=== PATIENT | female | born 1970 | race Caucasian/White ===

== ENCOUNTER 2023-04-15 11:21 | Emergency (ER) | payer OTHER, SELFPAY ==
[2023-04-15 11:33] VITALS: BP 111/72; PULSE 82; RESP 22; TEMP 36.5; O2SAT 97; BMI 51.9
--- NOTE | 2023-04-15 11:44 | ED_ITS ---
HPI - SOB/Dyspnea General Chief Complaint: Shortness of Breath/Dyspnea Stated Complaint: shortness of breath Time Seen by Provider: 04/15/23 11:40 Source: patient Mode of arrival: walk-in History of Present Illness HPI Narrative: History of COPD presenting to us with a shortness of breath that has been getting worse over the last 2 days she also have a cough nonproductive, the patient have no fever or chills but she has been having shortness of breath on exertion she did not use her inhaler except this morning The patient have no chest pain and no leg swelling and no exposure to anybody with similar symptoms Related Data Previous Rx's Medication Instructions Recorded azithromycin 500 mg tablet See Rx Instructions PO .COMPLEX #9 04/15/23 (Zithromax TRI-TRUONG) tabs fluticasone 250 mcg-salmeterol 50 1 inh inhalation BID #60 ea 04/15/23 mcg/dose blistr powdr for inhalation (Advair Diskus) prednisone 50 mg tablet 50 mg PO DAILY 3 days #3 tabs 04/15/23 Allergies Allergy/AdvReac Type Severity Reaction Status Date / Time No Known Drug Allergies Allergy Verified 04/15/23 11:33 Review of Systems ROS Status of ROS 10 or more systems reviewed and unremarkable except as noted in history and below PFSH PFS Social History Smoking status: Current every day smoker Exam Narrative Exam Narrative: Nurses notes and vital signs reviewed and patient is not hypoxic. General: Well-appearing and in no apparent distress. Skin: Warm, dry, no pallor noted. No rash. Head: Normocephalic, atraumatic. Neck: Supple, non-tender. Eye: Pupils are equal, round and EOMI. No scleral icterus. Ears, Nose, Mouth, and Throat: TM are clear, no nasal mucosal hypertrophy. Oral mucosa is moist, no posterior oropharynx erythema, uvula is mid-line Cardiovascular: Regular Rate and Rhythm without murmur, gallop or rub. Respiratory: No accessory muscle use or respiratory distress. Lungs bilateral expiratory mild wheezes that are distant as well as decreased air entry bilaterally Chest Wall: no tenderness Back: No midline thoracic or lumbar vertebral tenderness. No CVA tenderness Musculoskeletal: normal ROM, no calf or popliteal tenderness, no lower extremity edema/swelling GI: Abdomen is soft, non-distended. Normal bowel sounds. No masses appreciated. No tenderness to palpation. No rebound, guarding, or rigidity noted. Neurological: A&O x4. No cranial nerve dysfunction observed. No truncal ataxia. Moves all extremities. Sensation intact. Psychiatric: Cooperative and interactive. Normal mood and affect. Constitutional Vital Signs, click to edit/add: Last Vital Signs Temp 97.7 F 04/15/23 11:33 Pulse 82 04/15/23 11:33 Resp 22 04/15/23 11:33 BP 111/72 04/15/23 11:33 Pulse Ox 97 04/15/23 11:33 Course Vital Signs Vital signs: Vital Signs Temperature 97.7 F 04/15/23 11:33 Pulse Rate 82 04/15/23 11:33 Respiratory Rate 22 04/15/23 11:33 Blood Pressure 111/72 04/15/23 11:33 Pulse Oximetry 97 04/15/23 11:33 Temperature 97.7 F 04/15/23 11:33 Pulse Rate 82 04/15/23 11:33 Respiratory Rate 22 04/15/23 11:33 Blood Pressure 111/72 04/15/23 11:33 Pulse Oximetry 97 04/15/23 11:33 MDM - SOB/Dyspnea MDM Narrative Medical decision making narrative: The patient EKG in the ER showing sinus rhythm with a heart rate of [address] elevation or depression Chest x-ray as well as CBC and chemistry showing no acute significant pathology and the patient was treated in the ER with Solu-Medrol as well as breathing treatment The patient was feeling better after the treatment she was discharged home with the Advair as well as the prednisone Z-Truong and to continue using her albuterol The patient is to follow up with primary care physician in next 2-3 days or to return to the emergency department should any of the signs or symptoms worsen or new symptoms develop. The patient agrees with the following Diagnosis and Treatment plan and the patient will be discharged home. Lab Data Labs: Lab Results 04/15/23 Range/Units 11:55 WBC 8.5 (4.0-11.0) 10^3/uL RBC 4.66 (4.20-5.40) 10^6/uL Hgb 13.5 (12.0-16.0) g/dL Hct 42.1 (36.0-48.0) % MCV 90.3 (81.0-99.0) fL MCH 29.0 (26.7-34.0) pg MCHC 32.1 (29.9-35.2) g/dL RDW 13.5 (11.0-15.0) % Plt Count 222 (150-450) 10^3/uL MPV 8.7 L (9.5-13.5) fL Neut % (Auto) 55.6 (43.0-75.0) % Lymph % (Auto) 35.7 (20.5-60.0) % [place] % (Auto) 6.3 (1.7-12.0) % Eos % (Auto) 1.3 (0.9-7.0) % Baso % (Auto) 0.6 (0.2-2.0) % Neut # (Auto) 4.7 (1.4-6.5) 10^3/uL Lymph # (Auto) 3.0 (1.2-3.8) 10^3/uL [place] # (Auto) 0.5 (0.3-0.8) 10^3/uL Eos # (Auto) 0.1 (0.0-0.7) 10^3/uL Baso # (Auto) 0.1 (0.0-0.1) 10^3/uL Abs Immat Gran (auto) 0.04 H (0.00-0.03) 10^3/uL Imm/Tot Granulo (auto) 0.5 (0.0-0.5) % PT 9.7 (9.0-11.6) sec INR <0.93 Sodium 141 (136-145) mmol/L Potassium 4.4 (3.5-5.1) mmol/L Chloride 107 (98-107) mmol/L Carbon Dioxide 29.7 (21.0-32.0) mmol/L Anion Gap 8.7 BUN 22.0 H (7.0-18.0) mg/dL Creatinine 1.13 H (0.55-1.02) mg/dL Est GFR ( Amer) >60 (>=60) Est GFR (Non-Af Amer) 50 L (>=60) BUN/Creatinine Ratio 19.5 Glucose 96 (74-106) mg/dL Calcium 9.1 (8.5-10.1) mg/dL Total Bilirubin 0.2 (0.2-1.0) mg/dL AST 7 L (15-37) U/L ALT 16 (14-59) U/L Alkaline Phosphatase 98 (46-116) U/L Troponin I High Sens 8.8 (4.0-51.3) pg/mL Total Protein 7.3 (6.4-8.2) g/dL Albumin 4.1 (3.4-5.0) g/dL Globulin 3.2 g/dL Albumin/Globulin Ratio 1.3 Discharge Plan Discharge Chief Complaint: Shortness of Breath/Dyspnea Clinical Impression: COPD exacerbation Patient Disposition: Home, Self-Care Time of Disposition Decision: 12:48 Condition: Good Prescriptions / Home Meds: New azithromycin [Zithromax TRI-TRUONG] 500 mg tablet See Rx Instructions .ROUTE .COMPLEX Qty: 9 0RF Rx Instructions: For 250 mg dose pack: take 500 mg today (day 1), then 250 mg for 4 days (days 2-5) fluticasone propion-salmeterol [Advair Diskus] 250-50 mcg/dose blister with device 1 inh inhalation BID Qty: 60 0RF prednisone 50 mg tablet 50 mg PO DAILY 3 Days Qty: 3 0RF Instructions: COPD (Chronic Obstructive Pulmonary Disease) (ED) Stand Alone Forms: Portal Instructions Referrals: Loida Huggins [Primary Care Provider] - 1 week
--- NOTE | 2023-04-15 11:44 | ECG_ITS ---
[facility] Test Date: 2023-04-15 Pat Name: VIN EDUARDO Department: Room: - Gender: Female [employer]: : 1970 Requested By: MARIAMA GARCIA Order Number: [id number] Reading MD: SAM REYES Measurements Intervals [place] Rate: 80 P: 53 [place]: 156 QRS: 51 QRSD: 88 T: 45 QT: 328 QTc: 364 Interpretive Statements 1100 Sinus rhythm 4068 Nonspecific Twave abnormality 9130 borderline ECG No previous ECG available for comparison Electronically Signed On 04-16-2023 7:23:10 EDT by SAM REYES
--- NOTE | 2023-04-15 11:44 | XR_ITS ---
The [address] [address] Patient Name: VIN EDUARDO MRN: [id number] date: 1970 Sex: F Assigned Patient Location: ER Current Patient Location: ER Accession/Order Number: [id number] Exam Date: 04/15/2023 12:05 Report Date: 04/15/2023 12:19 At the request of: EDEL JOY Procedure: XR chest 1V EXAM: XR chest 1V at 1133 hours HISTORY: sob for 2 days. COMPARISON: 09/13/2022 TECHNIQUE: AP upright portable chest x-ray FINDINGS: The heart is not enlarged and the vasculature is not distended. No acute infiltrate, effusion or pneumothorax is readily identified. The study is bit limited secondary to the patient's body habitus and technique. The osseous structures are grossly intact. XR/XR chest 1V IMPRESSION: No acute infiltrate or evidence of cardiac decompensation. Given the differences in technique, the overall appearance of the chest is essentially unchanged. Electronically authenticated by: VONDA NETTLES Date: 04/15/2023 12:19
[2023-04-15] MEDS: METHYLPREDNISOLONE SOD SUCC PF 125 MG/2 ML VIAL IVP (12:00)
[2023-04-15] MEDS: IPRATROPIUM/ALBUTEROL SULFATE 3 ML AMPUL.NEB IH (12:08)
[2023-04-15 12:14] LABS: Basophils Absolute Auto 0.1 10^3/uL (0.0-0.1); Basophils Percent Auto 0.6 % (0.2-2.0); Eosinophils Absolute Auto 0.1 10^3/uL (0.0-0.7); Eosinophils Percent Auto 1.3 % (0.9-7.0); Hematocrit 42.1 % (36.0-48.0); Hemoglobin 13.5 g/dL (12.0-16.0); Immature Granulocytes Abs Auto 0.04 10^3/uL (0.00-0.03); Immature Granulocytes Pct Auto 0.5 % (0.0-0.5); Lymphocytes Percent Auto 35.7 % (20.5-60.0); Mean Corpuscular HGB Conc 32.1 g/dL (29.9-35.2); Mean Corpuscular Volume 90.3 fL (81.0-99.0); Mean Platelet Volume 8.7 fL (9.5-13.5); Monocytes Absolute Auto 0.5 10^3/uL (0.3-0.8); Monocytes Percent Auto 6.3 % (1.7-12.0); Neutrophils Absolute Auto 4.7 10^3/uL (1.4-6.5); Neutrophils Percent Auto 55.6 % (43.0-75.0); Platelet Count 222 10^3/uL (150-450); Red Blood Count 4.66 10^6/uL (4.20-5.40); Red Cell Distribution Width 13.5 % (11.0-15.0); White Blood Count 8.5 10^3/uL (4.0-11.0)
[2023-04-15 12:26] LABS: Prothrombin Time 9.7 sec (9.0-11.6)
[2023-04-15 12:28] LABS: INR <0.93
[2023-04-15 12:32] LABS: Alanine Aminotransferase 16 U/L (14-59); Albumin Globulin Ratio 1.3; Albumin Level 4.1 g/dL (3.4-5.0); Alkaline Phosphatase 98 U/L (46-116); Anion Gap 8.7; Aspartate Amino Transferase 7 U/L (15-37); BUN Creatinine Ratio 19.5; Bilirubin Total 0.2 mg/dL (0.2-1.0); Calcium 9.1 mg/dL (8.5-10.1); Carbon Dioxide 29.7 mmol/L (21.0-32.0); Chloride 107 mmol/L (98-107); Estimated GFR (African America >60 (>=60); Estimated GFR (Non-African Ame 50 (>=60); Globulin 3.2 g/dL; Glucose 96 mg/dL (74-106); Potassium 4.4 mmol/L (3.5-5.1); Sodium 141 mmol/L (136-145); Total Protein 7.3 g/dL (6.4-8.2)
[2023-04-15 12:34] LABS: Troponin I High Sensitivity 8.8 pg/mL (4.0-51.3)
[2023-04-15 13:42] VITALS: O2SAT 98
== END 2023-04-15 13:43 | disposition home or self-care (01) ==
PROVIDERS: Emergency Provider Emergency Medicine; PCP Nurse Practitioner
DX: J44.1 Chronic obstructive pulmonary disease with (acute) exacerbation (principal); F17.210 Nicotine dependence, cigarettes, uncomplicated
CPT/HCPCS: 36415; 71045; 80053; 84484; 85025; 85610; 93005; 94640; 99285; J2930

== ENCOUNTER 2025-02-05 07:43 | Outpatient (OUT) | payer BC, SELFPAY ==
--- OUTSIDE RECORDS SUMMARY | 2025-01-25 10:30 | XMS_ITS | Encounter Summary ---
Author Organization [facility] Address [address] [place] [address] Care Team Providers Care Licensed Physical Therapist Name Role Phone Loida Huggins NP Unavailable [phone] Chandler Tee MD Primary Care Provider [phone] Reason for Visit * Reason Comments Diabetes Encounter Details Date Type Department Care Team ([facility] st Contact Info) Description 01/25/2025 10:30 AM EDT Office Visit [facility] [address] [place] [address] Loida Huggins, LISBET [address] [place] [address] Bilateral primary osteoarthritis of knee (Primary Dx); Obstructive sleep apnea syndrome; COPD with asthma (HCC); Pulmonary hypertension (HCC); Gastroesophageal reflux disease, unspecified whether esophagitis present; Lower extremity edema; Morbid (severe) obesity due to excess calories ([facility]-HCC); Other specified hypothyroidism ; Acquired hypothyroidism ; Prediabetes; Anxiety; Mixed anxiety and depressive disorder; Tobacco user; Encounter for screening mammogram for malignant neoplasm of breast; Anxiety disorder, unspecified; Pulmonary hypertension, unspecified (HCC); Insomnia, unspecified Social History Tobacco Use Types Packs/Day Years Used Date Smoking Tobacco: Every Day Cigarettes Smokeless Tobacco: Never Alcohol Use Standard Drinks/Week Comments Not Currently 0 (1 standard drink = 0.6 oz pur e alcohol) caffine: coffee 2 pots daily Comments Unknown Sex and Gender Information Value Date Recorded Sex Assigned at Not on file Legal Sex Female 6:42 PM EDT Gender Identity Not on file Sexual Orientation Not on file documented as of this encounter Last Filed Vital Signs Vital Sign Reading Time Taken Comments Blood Pressure 140/90 01/25/2025 10:30 AM EDT Pulse 72 01/25/2025 10:30 AM EDT Temperature 36.6 C (97.8 F) 01/25/2025 10:30 AM EDT Respiratory Rate 20 01/25/2025 10:30 AM EDT Oxygen Saturation 97% 01/25/2025 10:30 AM EDT Inhaled Oxygen Concentration - - Weight 152 kg (335 lb 3.2 oz) 01/25/2025 10:30 A M EDT Height - - Body Mass Index 58.45 03/20/2024 2:51 PM EDT documented in this encounter Patient Instructions * Patient Instructions* Loida Huggins NP - 01/25/2025 10:30 AM EDT Get fasting labs Contact insurance: obesity drugs: Wegovy (semiglutide), Zepbound, and Saxenda. You will need to call them, state we are using for Obesity, and are any of them covered and if yes, what is your cost totake them documented in this encounter Progress Notes * Loida Huggins NP - 01/25/2025 11:07 AM EDTAssociated Problem(s): Bilateral primary osteoarthritis of knee Would prefer to use ibuprofen 800mg * Loida Huggins NP - 01/25/2025 11:05 AM EDTAssociated Problem(s): Encounter for screening mammogram for malignant neoplasm of breast Pt refused * Loida Huggins NP - 01/25/2025 11:03 AM EDTAssociated Problem(s): Insomnia, unspecified Continue with TCA * CHARY SARABIA - 01/25/2025 10:30 AM EDT Left shoulder blade pain- painful in the last couple weeks pt is taking IBU otc however does not help with pt. Pt states she is able to perform ROM it just hurts Pain can range between 5-6 on the pain scale when it does hurt * Loida Huggins NP - 01/25/2025 10:30 AM EDT Images from the original note were not included. Kerline Segal is a 54 y.o. female presents with chief complaint of Diabetes HPI: Left shoulder /scapular pain for a few weeks, getting better, full ROM no pain with this, trialed many OTC things and muscle relaxer Breathing: +cough, dyspnea, no wheeze, worse during humidity, DEANNA: wearing PAP , machine is indicating motor is dying, needs new machine BP; doing well on also takes water pill for swelling in legs Paxil: no SI/HI/hallucinations, working well no changes SUBJECTIVE: MEDICATIONS: Current Outpatient Medications Medication Instructions amitriptyline (ELAVIL) 25 mg, Oral, Nightly Vuuanqqtkqx-Oggnnolbu-Zdrsot (Trelegy Ellipta) 100-62.5-25 MCG/ACT aerosol powder 1 puff, Daily furosemide (LASIX) 40 mg, Oral, Daily ibuprofen 800 mg, Oral, 3 times daily PRN, Take with food levothyroxine (SYNTHROID, LEVOXYL) 88 mcg, Oral, Daily before breakfast PARoxetine (PAXIL) 40 mg, Oral, Daily ALLERGIES: No Known Allergies REVIEW OF SYMPTOMS: Review of Systems Constitutional: Negative for appetite change, chills and fever. HENT: Negative for congestion, ear pain and sore throat. Eyes: Negative for pain, discharge, redness and visual disturbance. Respiratory: Positive for cough, shortness of breath and wheezing. Cardiovascular: Negative for palpitations and leg swelling. Gastrointestinal: Negative for abdominal pain, blood in stool, constipation, diarrhea, nausea and vomiting. Genitourinary: Negative for difficulty urinating, dysuria and frequency. Musculoskeletal: Positive for arthralgias. Negative for back pain, joint swelling and myalgias. Skin: Negative for rash and wound. Neurological: Negative for syncope. Psychiatric/Behavioral: Negative for behavioral problems, self-injury and suicidal ideas. Hematological: Does not bruise/bleed easily. Allergic/Immunologic: Negative for environmental allergies and food allergies. PAST MEDICAL HISTORY History reviewed. No pertinent past medical history. History reviewed. No pertinent surgical history. family history is not on file. OBJECTIVE: Visit Vitals BP 140/90 (BP Location: Left arm, Patient Position: Sitting, BP Cuff Size: Adult long) Pulse 72 Temp 97.8 ??F (Temporal) Resp 20 Wt 335 lb 3.2 oz SpO2 97% BMI 58.45 kg/m?? Smoking Status Every Day BSA 2.61 m?? Physical Exam Vitals and nursing note reviewed. Constitutional: General: She is not in acute distress. Appearance: Normal appearance. She is obese. She is not ill-appearing. HENT: Head: Normocephalic and atraumatic. Right Ear: Tympanic membrane, ear canal and external ear normal. Left Ear: Tympanic membrane, ear canal and external ear normal. Nose: Nose normal. No congestion or rhinorrhea. Mouth/Throat: Mouth: Mucous membranes are moist. Pharynx: No oropharyngeal exudate or posterior oropharyngeal erythema. Eyes: Extraocular Movements: Extraocular movements intact. Conjunctiva/sclera: Conjunctivae normal. Neck: Vascular: No carotid bruit. Cardiovascular: Rate and Rhythm: Normal rate and regular rhythm. Pulses: Normal pulses. Heart sounds: Normal heart sounds. No murmur heard. Pulmonary: Effort: Pulmonary effort is normal. Comments: diminished Abdominal: General: Bowel sounds are normal. There is no distension. Palpations: Abdomen is soft. There is no mass. Tenderness: There is no abdominal tenderness. Musculoskeletal: General: Normal range of motion. Cervical back: Normal range of motion and neck supple. Right lower leg: No edema. Left lower leg: No edema. Comments: Mild tenderness between left scapula and T spine area, no rash No mid print line feeder, left shoulder full ROM Lymphadenopathy: Cervical: No cervical adenopathy. Skin: General: Skin is warm and dry. Capillary Refill: Capillary refill takes 2 to 3 seconds. Findings: No rash. Neurological: General: No focal deficit present. Mental Status: She is alert and oriented to person, place, and time. Psychiatric: Mood and Affect: Mood normal. Behavior: Behavior normal. Thought Content: Thought content normal. Judgment: Judgment normal. ASSESSMENT AND PLAN: Follow up in about 3 months (around 04/27/2025) for Recheck. Problem List Items Addressed This Visit Insomnia, unspecified Continue with TCA Relevant Medications amitriptyline (Elavil) 25 MG tablet GERD (gastroesophageal reflux disease) Recommendations: freq small meals, nothing to eat or drink at least 2 hours prior to bed, limit caffeine, alcohol, as well as spicy foods Meds to limit or avoid if possible: NSAIDS Elevate HOB if possible Current med:nothing Relevant Orders CBC and differential Comprehensive metabolic panel RESOLVED: Anxiety Current med: paxil Bilateral primary osteoarthritis of knee - Primary Would prefer to use ibuprofen 800mg Relevant Medications ibuprofen 800 MG tablet Tobacco user The patient has been advised of the risks of continued smoking: stroke, [place], all forms of cancer, lung disease, and . Options for quitting smoking include: cold turkey, hypnosis, acupuncture, nicotine replacement meds(gum, lozenges, and patches), Buproprion, and Varenicline. At this time pt is encouraged to evaluate their goals for wanting to quit smoking, and reach out toprovider when ready to start this process Relevant Orders Urinalysis with reflex microscopic (clean catch) Lower extremity edema Current meds: lasix Check labs yearly and prn dose change or changes in sxs Relevant Orders Comprehensive metabolic panel RESOLVED: Other specified hypothyroidism Relevant Medications levothyroxine (Synthroid, Levoxyl) 88 MCG tablet Prediabetes No current meds Recommend weight loss, physical activity as chronic conditions allow (difficult with breathing and bilat OA knees) A1c: 6.3% 01/25/25 Relevant Orders Comprehensive metabolic panel POCT glycosylated hemoglobin (Hb A1C) docked device (Completed) Pulmonary hypertension (HCC) Noted on past imaging Sleep apnea You have a diagnosis of obstructive sleep apnea. It is recommended that you wear your PAP device any time while in bed sleeping. Not using the PAP device can increase your risk of elevated/uncontrolled high blood pressure, atrial fibrillation, heart attack, stroke, or sudden . Compliance with PAP: yes How many hours of use per night:6 Do you feel more refreshed in the morning: yes Company that supplies your machine and tubing/filters etc: [facility] Doctor that manages your DEANNA: PCP Gave her phone number for [facility] Sleep lab for pt to call them to see what to do about pap and motor on machine Relevant Orders CBC and differential Morbid (severe) obesity due to excess calories (CMS-HCC) Discussed with patient their BMI (actual, verses recommended). We have also discussed lifestyle modifications: attempts to perform physical activity as chronic conditions allow, also to monitor dietary intake: increasing protein/fruits/veggies and lowering carb intake (unless contraindicated). Limit sodas, juices, and sugary drinks. Relevant Orders Lipid panel COPD with asthma (HCC) Current meds: trelegy and albuterol Relevant Orders CBC and differential Acquired hypothyroidism On thyroid meds Check labs yearly and prn dose change, or changes in sxs Relevant Orders TSH T4, free Mixed anxiety and depressive disorder Current medication: paxil, elavil Encounter for screening mammogram for malignant neoplasm of breast Pt refused Other Visit Diagnoses Anxiety disorder, unspecified Relevant Medications PARoxetine (Paxil) 40 MG tablet Pulmonary hypertension, unspecified (HCC) Relevant Medications furosemide (Lasix) 40 MG tablet * Loida Huggins NP - 01/25/2025 6:27 AM EDTAssociated Problem(s): Tobacco user The patient has been advised of the risks of continued smoking: stroke, [place], all forms of cancer, lung disease, and . Options for quitting smoking include: cold turkey, hypnosis, acupuncture, nicotine replacement meds(gum, lozenges, and patches), Buproprion, and Varenicline. At this time pt is encouraged to evaluate their goals for wanting to quit smoking, and reach out toprovider when ready to start this process * oLida Huggins NP - 01/25/2025 6:27 AM EDTAssociated Problem(s): Mixed anxiety and depressive disorder Current medication: paxil, elavil * Loida Huggins NP - 01/25/2025 6:26 AM EDTAssociated Problem(s): Anxiety (Resolved 01/25/2025) Current med: paxil * Loida Huggins NP - 01/25/2025 6:26 AM EDTAssociated Problem(s): Prediabetes No current meds Recommend weight loss, physical activity as chronic conditions allow (difficult with breathing and bilat OA knees) A1c: 6.3% 01/25/25 * Loida Huggins NP - 01/25/2025 6:25 AM EDTAssociated Problem(s): Acquired hypothyroidism On thyroid meds Check labs yearly and prn dose change, or changes in sxs * Loida Huggins NP - 01/25/2025 6:24 AM EDTAssociated Problem(s): Morbid (severe) obesity due to excess calories ([facility]-HCC) Discussed with patient their BMI (actual, verses recommended). We have also discussed lifestyle modifications: attempts to perform physical activity as chronic conditions allow, also to monitor dietary intake: increasing protein/fruits/veggies and lowering carb intake (unless contraindicated). Limit sodas, juices, and sugary drinks. * Loida Huggins NP - 01/25/2025 6:24 AM EDTAssociated Problem(s): Lower extremity edema Current meds: lasix Check labs yearly and prn dose change or changes in sxs * Loida Huggins NP - 01/25/2025 6:23 AM EDTAssociated Problem(s): GERD (gastroesophageal reflux disease) Recommendations: freq small meals, nothing to eat or drink at least 2 hours prior to bed, limit caffeine, alcohol, as well as spicy foods Meds to limit or avoid if possible: NSAIDS Elevate HOB if possible Current med:nothing * Loida Huggins NP - 01/25/2025 6:23 AM EDTAssociated Problem(s): Pulmonary hypertension (HCC) Noted on past imaging * Loida Huggins NP - 01/25/2025 6:23 AM EDTAssociated Problem(s): COPD with asthma (HCC) Current meds: trelegy and albuterol * Loida Huggins NP - 01/25/2025 6:22 AM EDTAssociated Problem(s): Sleep apnea You have a diagnosis of obstructive sleep apnea. It is recommended that you wear your PAP device any time while in bed sleeping. Not using the PAP device can increase your risk of elevated/uncontrolled high blood pressure, atrial fibrillation, heart attack, stroke, or sudden . Compliance with PAP: yes How many hours of use per night:6 Do you feel more refreshed in the morning: yes Company that supplies your machine and tubing/filters etc: [facility] Doctor that manages your DEANNA: PCP Gave her phone number for [facility] Sleep lab for pt to call them to see what to do about pap and motor on machine documented in this encounter Plan of Treatment Upcoming Encounters Date Type Department Care Team (Late st Contact Info) Description 05/03/2025 10:30 AM EDT Office Visit [facility] [address] [place] [address] Loida Huggins NP [address] [place] [address] Scheduled Orders Name Type Priority Associated Diagnoses Orde r Schedule CBC and differential Lab Routine Obstructive sleep apnea syndrome COPD with asthma (HCC) Gastroesophageal reflux disease, unspecified whether esophagitis present Expected: 01/25/2025 (Approximate), Expires: 01/25/2026 Comprehensive metabolic panel Lab Routine Gastroesophageal reflux disease, unspecified whether esophagitis present Lower extremity edema Prediabetes Expected: 01/25/2025 (Approximate), Expires: 01/25/2026 Lipid panel Lab Routine Morbid (severe) obesity due to excess calories (CMS-HCC) Expected: 01/25/2025 (Approximate), Expires: 01/25/2026 Urinalysis with reflex microscopic (clean catch) Lab Routine Tobacco user Expected: 01/25/2025 (Approximate), Expires: 01/25/2026 TSH Lab Routine Acquired hypothyroidism Expected: 01/25/2025 (Approximate), Expires: 01/25/2026 T4, free Lab Routine Acquired hypothyroidism Expected: 01/25/2025 (Approximate), Expires: 01/25/2026 documented as of this encounter Procedures Procedure Name Priority Date/Time Associated Diagnosis Comments POCT GLYCOSYLATED HEMOGLOBIN (HGB A1C) Routine 01/25/2025 10:46 AM EDT Prediabetes documented in this encounter Results * (ABNORMAL) POCT glycosylated hemoglobin (Hb A1C) docked device (01/25/2025 10:46 AM EDT) Hemoglobin A1C 6.3 Blood Venous blood specimen / Unknown 01/25/2025 10:46 AM EDT Loida Huggins NP POINT OF CARE TEST ENTER/EDIT O RDERABLES Final Result documented in this encounter Visit Diagnoses Diagnosis Bilateral primary osteoarthritis of knee- Primary Obstructive sleep apnea syndrome Obstructive sleep apnea (adult) (pediatric) COPD with asthma (HCC) Pulmonary hypertension (HCC) Other chronic pulmonary heart diseases Gastroesophageal reflux disease, unspecified whether esophagitis present Lower extremity edema Edema Morbid (severe) obesity due to excess calories ([facility]-HCC) Other specified hypothyroidism Acquired hypothyroidism Unspecified hypothyroidism Prediabetes Other abnormal glucose Anxiety Anxiety state, unspecified Mixed anxiety and depressive disorder Dysthymic disorder Tobacco user Tobacco use disorder Encounter for screening mammogram for malignant neoplasm of breast Anxiety disorder, unspecified Pulmonary hypertension, unspecified (HCC) Insomnia, unspecified documented in this encounter Care Teams Licensed Physical Therapist Relationship Specialty Start Date End Date Chandler Tee MD [address] [place] [address] PCP - General Family Medicine 02/24/24 Loida Huggins NP [address] [place] [address] Referring Physician Nurse Practitioner 03/02/23 documented as of this encounter
--- OUTSIDE RECORDS SUMMARY | 2025-02-05 07:48 | XMS_ITS | Encounter Summary ---
Author Organization [facility] Address [address] [place] [address] Phone Care Team Providers Care Flooring Machine Feeder Name Role Phone Loida Huggins Primary Care Provider Encounter Details Date Type Department Care Team (Late st Contact Info) Description 01/25/2022 Orders Only [facility] [address] [place] [address] Conversion, Onbase Social History Tobacco Use Types Packs/Day Years Used Date Smoking Tobacco: Never Assessed Comments Unknown Sex and Gender Information Value Date Recorded Sex Assigned at Not on file Legal Sex Female 1:44 AM EST Gender Identity Not on file Sexual Orientation Not on file documented as of this encounter Plan of Treatment Scheduled Orders Name Type Priority Associated Diagnoses Orde r Schedule OUTSIDE LAB SCAN Lab Ordered: 01/25/2022 documented as of this encounter Visit Diagnoses Not on filedocumented in this encounter Care Teams Flooring Machine Feeder Relationship Specialty Start Date End Date Loida Huggins APRN-CNP [address] [place] [id number] PCP - General 08/16/16 documented as of this encounter
--- OUTSIDE RECORDS SUMMARY | 2025-02-05 07:48 | XMS_ITS | Referral Summary ---
Author Organization [facility] Address [address] [place] [address] Care Team Providers Care Metrology Manager Name Role Phone Unavailable Primary Care Provider Unavailabl e Social History Tobacco Use Types Packs/Day Years Used Date Smoking Tobacco: Never Assessed [place] Safety & Environment Answer Date Rec orded Fear of Current or Ex-Partner Not on file Emotionally Abused Not on file 10/07/2023 Physically Abused Not on file 10/07/2023 Sexually Abused Not on file 10/07/2023 Physically or Sexually Abused Not on file Comments Unknown Sex and Gender Information Value Date Recorded Sex Assigned at Not on file Legal Sex Female 9:31 PM EDT Gender Identity Not on file Sexual Orientation Not on file Plan of Treatment Not on file
--- OUTSIDE RECORDS SUMMARY | 2025-02-05 07:48 | XMS_ITS | Clinical Summary ---
Author Organization [facility] Address [address] [place] [address] Care Team Providers Care Jumbo Operator Name Role Phone Unavailable Primary Care Provider [...]
--- OUTSIDE RECORDS SUMMARY | 2025-02-05 07:48 | XMS_ITS | Clinical Summary ---
Author Organization [facility] Address [id number] [address] [place] [address] Care Team Providers Care Change House Attendant Name Role Phone Loida Huggins APRN-[facility] Primary Care Provider Allergies No known active allergies Medications levothyroxine (SYNTHROID, LEVOTHROID) 125 MCG tablet Take 150 mcg by mouth daily. Active omeprazole (PriLOSEC) 20 mg capsule Take 20 mg by mouth daily. Active therapeutic multivitamin (THERAGRAN) tablet Take 1 tablet by mouth daily. Active potassium chloride (K-DUR,KLOR-CON) 20 MEQ CR tablet Take 20 mEq by mouth daily. Active furosemide (LASIX) 40 mg tablet Take 40 mg by mouth daily. Active PARoxetine (PAXIL) 20 mg tablet Take 20 mg by mouth every morning. Active etodolac (LODINE) 300 mg capsule Take 300 mg by mouth 2 (two) times a day. Active fluticasone-vilan terol (BREO ELLIPTA) 100-25 mcg/dose blister with device Inhale 1 puff daily. Active umeclidinium (INCRUSE ELLIPTA) 62.5 mcg/actuation blister with device Inhale 62.5 mcg daily. Active zolpidem (AMBIEN) 10 mg tablet Take 5 mg by mouth nightly as needed for sleep. Active albuterol (PROAIR HFA) 90 mcg/actuation inhaler Inhale 2 puffs every 6 (six) hours as needed for wheezing. Active albuterol (PROVENTIL,VENTOL IN) 2.5 mg /3 mL (0.083 %) nebulizer solution inhale contents of 1 vial in nebulizer every 4 hours if needed 0 7 Active ipratropium (ATROVENT) 0.02 % nebulizer solution inhale contents of 1 vial in nebulizer WITH ALBUTEROL every 4 to 6 hours if needed 0 7 Active Family History Medical History Relation Name Comments No Known Problems Father Asthma Mother Depression Mother Heart disease Mother Relation Name Status Comments Father Mother Social History Tobacco Use Types Packs/Day Years Used Date Smoking Tobacco: Former Alcohol Use Standard Drinks/Week Comments Yes 0 (1 standard drink = 0.6 oz pur e alcohol) once a month Childcare Answer Date Recorded Childcare Unknown 01/25/2019 Employment Answer Date Recorded Employment Unknown 01/25/2019 Purpose - Life Answer Date Recorded Purpose and direction in life Unknown Comments Unknown Sex and Gender Information Value Date Recorded Sex Assigned at Not on file Legal Sex Female 11:46 AM EDT Gender Identity Not on file Sexual Orientation Not on file Last Filed Vital Signs Vital Sign Reading Time Taken Comments Blood Pressure 140/77 11/11/2016 10:27 AM EDT Pulse 79 11/11/2016 10:27 AM EDT Temperature 36.6 C (97.9 F) 11/11/2016 10:27 AM EDT Respiratory Rate 16 11/11/2016 10:27 AM EDT Oxygen Saturation 94% 11/11/2016 10:27 AM EDT Inhaled Oxygen Concentration - - Weight 155.6 kg (343 lb) 11/11/2016 10:27 AM EDT Height 162.6 cm (5' 4 ) 11/11/2016 10:27 AM EDT Body Mass Index 58.88 11/11/2016 10:27 AM EDT Plan of Treatment Health Maintenance Due Date Last Done Comments Depression Screening 1980 Tobacco Screening 1980 Adult BMI Screening 1986 DTaP,Tdap and Td Vaccines (1 - Tdap) 1987 Pap Smear 1989 Zoster (Shingles) Vaccine (1 of 2) 2018 Influenza Vaccine 04/16/2025 Medical Devices Not on file [place] [address] [place] [address] MEDICAID Care Teams Change House Attendant Relationship Specialty Start Date End Date Loida Huggins, MALATHI-ETL DATA ARCHITECT PCP - General Nurse Practitioner 11/30/16
--- OUTSIDE RECORDS SUMMARY | 2025-02-05 07:48 | XMS_ITS | Encounter Summary ---
Author Organization [facility] Address [address] [place] [address] Care Team Providers Care Digester Cook Name Role Phone Loida Huggins NP Unavailable [phone] Chandler Tee MD Primary Care Provider [phone] Reason for Visit * Reason Comments Med Refill Encounter Details Date Type Department Care Team ([facility] Contact Info) Description 09/27/2024 Refill [facility] [address] [place] [address] Loida Huggins NP [address] [place] [address] Restless legs syndrome; Bilateral primary osteoarthritis of knee; Insomnia, unspecified Social History Tobacco Use Types [...] as of this encounter Plan of Treatment Upcoming Encounters Date Type Department Care Team ([facility] Contact Info) Description 05/03/2025 10:30 AM EDT Office Visit [facility] [address] [address] Loida Huggins, LISBET [address] [facility] [place] [address] documented as of this encounter Visit Diagnoses Diagnosis Restless legs syndrome Restless legs syndrome (RLS) Bilateral primary osteoarthritis of knee Insomnia, unspecified documented in this encounter Care Teams Digester Cook Relationship Specialty Start Date End Date Chandler Tee MD [address] [place] [address] PCP - General Family Medicine 02/24/24 Loida Huggins NP [address] [place] [address] Referring Physician Nurse Practitioner 03/02/23 documented as of this encounter
--- OUTSIDE RECORDS SUMMARY | 2025-02-05 07:48 | XMS_ITS | Clinical Summary ---
Author Organization [facility] Address [address] [place] [address] Care Team Providers Care Scientific Aide Name Role Phone Loida Huggins NP Unavailable [phone] Chandler Tee MD Primary Care Provider [phone] Allergies No known active allergies Medications Fluticasone-Umecli din-Vilant (Trelegy Ellipta) 100-62.5-25 MCG/ACT aerosol powderIndications: Chronic Obstructive Pulmonary Disease Inhale 1 puff Daily Active PARoxetine (Paxil) 40 MG tabletIndications: Anxiety disorder, unspecified Take 1 tablet (40 mg) by mouth Daily 90 tablet 5 025 Active levothyroxine (Synthroid, Levoxyl) 88 MCG tabletIndications: Acquired Hypothyroidism Take 1 tablet (88 mcg) by mouth in the morning. Take before meals. 90 tablet 5 025 Active furosemide (Lasix) 40 MG tabletIndications: Pulmonary hypertension, unspecified (HCC) Take 1 tablet (40 mg) by mouth Daily 90 tablet 5 025 Active amitriptyline (Elavil) 25 MG tabletIndications: Insomnia, unspecified Take 1 tablet (25 mg) by mouth at bedtime 90 tablet 5 025 Active ibuprofen 800 MG tabletIndications: Bilateral primary osteoarthritis of knee Take 1 tablet (800 mg) by mouth 3 (three) times a day as needed for moderate pain (pain) Take with food 90 tablet 1 5 025 Active levothyroxine (Synthroid, Levoxyl) 88 MCG tabletIndications: Acquired Hypothyroidism Take 1 tablet (88 mcg) by mouth in the morning. Take before meals. 90 tablet 1 4 025 Discontin ued(Reord er) rOPINIRole (Requip) 0.5 MG tabletIndications: Restless legs syndrome Take 2 tablets (1 mg) by mouth at bedtime 60 tablet 2 4 025 Discontin ued(Thera py completed ) gabapentin (Neurontin) 300 MG capsuleIndications :Meralgia paresthetica, right lower limb Take 1 capsule (300 mg) by mouth in the morning and 1 capsule (300 mg) in the evening and 1 capsule (300 mg) before bedtime. 90 capsule 2 4 025 Discontin ued(Thera py completed ) PARoxetine (Paxil) 40 MG tabletIndications: Anxiety disorder, unspecified Take 1 tablet (40 mg) by mouth Daily 90 tablet 1 4 025 Discontin ued(Reord er) amitriptyline (Elavil) 25 MG tabletIndications: Insomnia, unspecified Take 1 tablet (25 mg) by mouth at bedtime 90 tablet 4 025 Discontin ued(Reord er) furosemide (Lasix) 40 MG tabletIndications: Pulmonary hypertension, unspecified (HCC) Take 1 tablet (40 mg) by mouth Daily 90 tablet 4 025 Discontin ued(Reord er) Active Problems Problem Noted Date Diagnosed Date COPD with asthma 01/25/2025 Assessment & Plan (01/25/2025 6:23 AM EDT): Current meds: trelegy and albuterol Acquired hypothyroidism 01/25/2025 Assessment & Plan (01/25/2025 6:25 AM EDT): On thyroid meds Check labs yearly and prn dose change, or changes in sxs Mixed anxiety and depressive disorder 01/25/2025 Assessment & Plan (01/25/2025 6:27 AM EDT): Current medication: paxil, elavil Encounter for screening mamm ogram for malignant neoplasm of breast 01/25/2025 Assessment & Plan (01/25/2025 11:05 AM EDT): Pt refused Atherosclerosis 03/20/2024 Bilateral primary osteoarthritis of knee 024 Assessment & Plan (01/25/2025 11:07 AM EDT): Would prefer to use ibuprofen 800mg Assessment & Plan (03/20/2024 5:01 PM EDT): Cont meloxicam Check labs: direct access info given Body mass index (BMI) 50.0-59.9, adult Tobacco user 03/20/2024 Assessment & Plan (01/25/2025 6:27 AM EDT): The patient has been advised of the risks of continued smoking: stroke, RI, all forms of cancer, lung disease, and . Options for quitting smoking include: cold turkey, hypnosis, acupuncture, nicotine replacement meds (gum, lozenges, and patches), Buproprion, and Varenicline. At this time pt is encouraged to evaluate their goals for wanting to quit smoking, and reach out to provider when ready to start this process Diastolic dysfunction 03/20/2024 Hyperplastic rectal polyp 03/20/2024 Lower extremity edema 03/20/2024 Assessment & Plan (01/25/2025 6:24 AM EDT): Current meds: lasix Check labs yearly and prn dose change or changes in sxs Assessment & Plan (03/20/2024 5:01 PM EDT): No med changes Check labs Migraines 03/20/2024 Multinodular goiter 03/20/2024 Prediabetes 03/20/2024 Assessment & Plan (01/25/2025 10:46 AM EDT): No current meds Recommend weight loss, physical activity as chronic conditions allow (difficult with breathing and bilat OA knees) A1c: 6.3% 01/25/25 Primary osteoarthritis 03/20/2024 Screening for malignant neoplasm of colon 2023 Sigmoid polyp 03/20/2024 Morbid (severe) obesity due to excess calories 0 03/20/2024 Assessment & Plan (01/25/2025 6:24 AM EDT): Discussed with patient their BMI (actual, verses recommended). We have also discussed lifestyle modifications: attempts to perform physical activity as chronic conditions allow, also to monitor dietary intake: increasing protein/fruits/veggies and lowering carb intake (unless contraindicated). Limit sodas, juices, and sugary drinks. Restless legs syndrome 10/12/2023 Insomnia, unspecified 10/12/2023 Assessment & Plan (01/25/2025 11:03 AM EDT): Continue with TCA Abnormal nuclear stress test 08/10/2023 Pulmonary hypertension 12/03/2016 Assessment & Plan (01/25/2025 6:23 AM EDT): Noted on past imaging Sleep apnea 10/01/2011 Assessment & Plan (01/25/2025 11:11 AM EDT): You have a diagnosis of obstructive sleep [...] that supplies your machine and tubing/filters etc: [facility] Doctor that manages your DEANNA: PCP Gave her phone number for [facility] Sleep lab for pt to call them to see what to do about pap and motor on machine Leiomyoma of uterus 01/23/2009 GERD (gastroesophageal reflux disease) Assessment & Plan (01/25/2025 6:23 AM EDT): Recommendations: freq small meals, nothing to eat or drink at least 2 hours prior to bed, limit caffeine, alcohol, as well as spicy foods Meds to limit or avoid if possible: NSAIDS Elevate HOB if possible Current med:nothing Resolved Problems Problem Noted Date Diagnosed Date Resolved Date Anxiety 03/20/2024 01/25/2025 Assessment & Plan (01/25/2025 6:26 AM EDT): Current med: paxil Assessment & Plan (03/20/2024 5:02 PM EDT): Cont paxil Chronic obstructive pulmonary disease 12/03/2016 01/25/2025 Assessment & Plan (03/20/2024 5:00 PM EDT): Will provide samples of Trelegy 100, and then try to get through PA Lot: [id number], exp 07/10, X2 Other specified hypothyroidism 12/03/2016 01/25/2025 Assessment & Plan (03/20/2024 5:02 PM EDT): Check labs Contact DM for verification of thyroid med dose Asthma 12/03/2016 01/25/2025 Depressive disorder 09/19/2009 01/26/20 Assessment & Plan (03/20/2024 5:02 PM EDT): Continue paxil Encounters Date Type Department Care Team Description 01/25/2025 10:30 AM EDT Office Visit [facility] [address] [place] [address] Loida Huggins NP Bilateral primary osteoarthritis of knee (Primary Dx); Obstructive sleep apnea syndrome; COPD with asthma (HCC); Pulmonary hypertension (HCC); Gastroesophageal reflux disease, unspecified whether esophagitis present; Lower extremity edema; Morbid (severe) obesity due to excess calories ([facility]-H[facility]); Other specified hypothyroidism ; Acquired hypothyroidism ; Prediabetes; Anxiety; Mixed anxiety and depressive disorder; Tobacco user; Encounter for screening mammogram for malignant neoplasm of breast; Anxiety disorder, unspecified; Pulmonary hypertension, unspecified (HCC); Insomnia, unspecified from Last 3 Months Immunizations Immunization Administration Dates Next Due Influenza, Unspecified 07/05/2016 Influenza, injectable, MDCK, preservative free, quadrivalent 06/14/2019 Influenza, injectable, quadrivalent, preservativ e free 07/01/2016 Influenza, seasonal, injectable 06/10/2022,08/16 Influenza, seasonal, injectable, preservative fr ee 07/04/2016 Pneumococcal Conjugate PCV 13 07/04/2016 Pneumococcal Polysaccharide PPSV23 07/05/2016 Social History Tobacco Use Types Packs/Day Years Used Date Smoking Tobacco: Every Day Cigarettes Smokeless Tobacco: Never Tobacco Cessation:Ready to Q uit: Not Asked; Counseling Given: Not Answered Alcohol Use Standard Drinks/Week Comments Not Currently [...] oz) 01/25/2025 10:30 A M EDT Height 161.3 cm (5' 3.5 ) 03/20/2024 2:51 PM EDT Body Mass Index 58.45 03/20/2024 2:51 PM EDT Plan of Treatment Upcoming Encounters Date Type Department Care Team (Late st Contact Info) Description 05/03/2025 10:30 AM EDT Office Visit [facility] [address] [place] [address] Loida Huggins NP [address] [place] [address] Health Maintenance Due Date Last Done Comments CT Colonography 1968 FIT-DNA 1968 FIT 1968 FOBT 1968 Sigmoidoscopy 1968 Pap Smear 1989 HPV/Cotest 1998 Influenza Vaccine (Season Ended) 2025 06/10/2022, 08/16/2020, 06/14/2019, Additional history exists Mammogram 01/25/2026 01/25/2025 (Tamar ent Refused), 03/20/2024 (Patient Refused) Colonoscopy 10/15/2027 10/14/2022 Colorectal Cancer Screening 10/15/2027 Cervical Cancer Screening Discontinued Procedures Procedure Name Priority Date/Time Associated Diagnosis Comments POCT GLYCOSYLATED HEMOGLOBIN (HGB A1C) Routine 01/25/2025 10:46 AM EDT Prediabetes from Last 3 Months Results * (ABNORMAL) POCT glycosylated hemoglobin (Hb A1C) docked device (01/25/2025 10:46 AM EDT) Hemoglobin A1C 6.3 Blood Venous blood specimen / Unknown 01/25/2025 10:46 AM EDT Loida Huggins NP POINT OF CARE TEST ENTER/EDIT O RDERABLES Final Result from Last 3 Months Insurance BCBS Care Teams Scientific Aide Relationship Specialty Start Date End Date Chandler Tee MD [address] [place] [phone] PCP - General Family Medicine 02/24/24 Loida Huggins NP [address] [place] [address] Referring Physician Nurse Practitioner 03/02/23
--- OUTSIDE RECORDS SUMMARY | 2025-02-05 07:48 | XMS_ITS | Encounter Summary ---
Author Organization [facility] Address [address] [place] [address] Care Team Providers Care Construction Person Name Role Phone Loida Huggins NP Unavailable [phone] Chandler Tee MD Primary Care Provider [phone] Reason for Visit * Reason Comments Med Refill Encounter Details Date Type Department Care Team ([facility] Contact Info) Description 09/16/[address] [facility] [address] [place] [address] Loida Huggins NP [address] [place] [address] Other specified hypothyroidism ; Restless legs syndrome; Bilateral primary osteoarthritis of [...] Upcoming Encounters Date Type Department Care Team ([facility] Contact Info) Description 05/03/2025 10:30 AM EDT Office Visit [facility] [address] [place] [address] Loida Huggins NP [address] [place] [address] documented as of this encounter Visit Diagnoses Diagnosis Other specified hypothyroidism Restless legs syndrome Restless legs syndrome (RLS) Bilateral primary osteoarthritis of knee Insomnia, unspecified documented in this encounter Care Teams Construction Person Relationship Specialty Start Date End Date Chandler Tee MD [address] [place] [address] PCP - General Family Medicine 02/24/24 Loida Huggins NP [address] [place] [address] Referring Physician Nurse Practitioner 03/02/23 documented as of this encounter
--- OUTSIDE RECORDS SUMMARY | 2025-02-05 07:49 | XMS_ITS | Encounter Summary ---
Author Organization [facility] Address [address] [place] [address] Care Team Providers Care Automobile Insurance Claim Examiner Name Role Phone Loida Huggins NP Unavailable [phone] Chandler Tee MD Primary Care Provider [phone] Reason for Visit * Reason Comments Med Refill Encounter Details Date Type Department Care Team ([facility] Contact Info) Description 02/28/2024 [facility] [address] [place] [address] Loida Huggins NP [address] [place] [address] Meralgia paresthetica, right lower limb Social History Tobacco Use Types Packs/Day Years Used Date Smoking Tobacco: Never Assessed Comments Unknown Sex and Gender Information Value Date Recorded Sex Assigned at Not on file Legal Sex Female 6:42 PM EDT Gender Identity Not on file Sexual Orientation Not on file documented as of this encounter Plan of Treatment Upcoming Encounters Date Type Department Care Team ([facility] Contact Info) Description 05/03/2025 10:30 AM EDT Office Visit [facility] [address] [place] [address] Loida Huggins NP [address] [place] [address] documented as of this encounter Visit Diagnoses Diagnosis Meralgia paresthetica, right lower limb documented in this encounter Care Teams Automobile Insurance Claim Examiner Relationship Specialty Start Date End Date Chandler Tee MD [address] [place] [address] PCP - General Family Medicine 02/24/24 Loida Huggins NP [address] [place] [address] Referring Physician Nurse Practitioner 03/02/23 documented as of this encounter
--- OUTSIDE RECORDS SUMMARY | 2025-02-05 07:49 | XMS_ITS | Clinical Summary ---
Author Organization [facility] Address [address] [place] [address] Phone Care Team Providers Care Maintenance Department Technician Name Role Phone Loida Huggins APRN-ELECTRIC DEICER INSPECTOR Primary Care Provider Allergies No known active allergies Medications gabapentin (Neurontin) 300 mg capsule Take 1 capsule (300 mg) by mouth 2 times a day. 05/14/2021 Active furosemide (Lasix) 40 mg tablet Take 1 tablet (40 mg) by mouth once daily. 05/06/2021 Active meloxicam (Mobic) 15 mg tablet Take 1 tablet (15 mg) by mouth once daily. 01/15/2021 Active aspirin 81 mg EC tablet Take 1 tablet (81 mg) by mouth once daily. 11/07/2021 Active potassium chloride CR 20 mEq ER tablet Take 1 tablet (20 mEq) by mouth once daily. 05/06/2021 Active PARoxetine (Paxil) 40 mg tablet Take 1 tablet (40 mg) by mouth once daily. 01/15/2021 Active traZODone (Desyrel) 50 mg tablet Take 1 tablet (50 mg) by mouth as needed at bedtime. Active Active Problems Problem Noted Date Diagnosed Date Abnormal nuclear stress test 08/10/2023 Current smoker 08/10/2023 Sleep apnea 08/10/2023 Immunizations Immunization Administration Dates Next Due Influenza, Unspecified 07/05/2016 Pneumococcal polysaccharide vaccine, 23-valent, age 2 years and older (PNEUMOVAX 23) 07/05/2016 Social History Tobacco Use Types Packs/Day Years Used Date Smoking Tobacco: Every Day Cigarettes Tobacco Cessation:Ready to Q uit: Not Asked; Counseling Given: Not Answered Alcohol Use Standard Drinks/Week Comments Yes 0 (1 standard drink = 0.6 oz pur e alcohol) Comments Unknown Sex and Gender Information Value Date Recorded Sex Assigned at Not on file Legal Sex Female 1:44 AM EST Gender Identity Not on file Sexual Orientation Not on file Last Filed Vital Signs Vital Sign Reading Time Taken Comments Blood Pressure 112/80 08/19/2022 10:50 AM EST Pulse 60 08/19/2022 10:50 AM EST Temperature - - Respiratory Rate - - Oxygen Saturation - - Inhaled Oxygen Concentration - - Weight 134 kg (296 lb) 08/19/2022 10:50 AM EST Height 161.3 cm (5' 3.5 ) 08/19/2022 10:50 AM ES T Body Mass Index 51.61 08/19/2022 10:50 AM EST Plan of Treatment Health Maintenance Due Date Last Done Comments CT Colonography 1968 Colonoscopy 1968 Colorectal Cancer Screening 1968 FIT-DNA (Cologuard) 1968 FIT 1968 HIV Screening 1968 Lipid Panel 1968 Sigmoidoscopy 1968 Yearly Adult Physical 1968 MMR Vaccines (1 of 1 - Stand deepak series) 1969 Hepatitis C Screening 1986 Hepatitis B Vaccines (1 of 3 - 19+ 3-dose series) 1987 Cervical Cancer Screening 1989 HPV/Cotest 1989 Pap Smear 1989 DTaP/Tdap/Td Vaccines (1 - Tdap) 1990 Mammogram 2008 Pneumococcal Vaccine (2 of 2 - PCV) 07/05/2017 07/05/2016 Zoster Vaccines (1 of 2) 2018 COVID-19 Vaccine (1 - 2023-2 5 season) 2024 Influenza Vaccine (Season Ended) 2025 07/05/20 16 HIB Vaccines Aged Out No longer eligi ble based on patient's age to complete this topic HPV Vaccines Aged Out No longer eligi ble based on patient's age to complete this topic Hepatitis A Vaccines Aged Out No long er eligible based on patient's age to complete this topic IPV Vaccines Aged Out No longer eligi ble based on patient's age to complete this topic Meningococcal Vaccine Aged Out No jayna yang eligible based on patient's age to complete this topic Rotavirus Vaccines Aged Out No longer eligible based on patient's age to complete this topic Insurance [employer] Care Teams Maintenance Department Technician Relationship Specialty Start Date End Date Loida Huggins, BOSTON CUTTER-ELECTRIC DEICER INSPECTOR [address] [place] [address] PCP - General 08/16/16
--- OUTSIDE RECORDS SUMMARY | 2025-02-05 07:49 | XMS_ITS | Encounter Summary ---
Author Organization [facility] Address [address] [place] [address] Care Team Providers Care Trimmer Press Clippings Name Role Phone Loida Huggins NP Unavailable [phone] Chandler Tee MD Primary Care Provider [phone] Reason for Visit * Reason Comments Med Refill Encounter Details Date Type Department Care Team (Late Contact Info) Description 03/08/2024 Refill [facility] [address] [place] [address] Loida Huggins, LISBET [address] [place] [address] Meralgia paresthetica, right lower limb; Anxiety disorder, unspecified; Restless legs syndrome; Insomnia, unspecified; Unspecified osteoarthritis, unspecified site Social History Tobacco Use Types Packs/Day Years Used Date Smoking Tobacco: Never Assessed Comments Unknown Sex and Gender Information Value Date Recorded Sex Assigned at Not on file Legal Sex Female 6:42 PM EDT Gender Identity Not on file Sexual Orientation Not on file documented as of this encounter Plan of Treatment Upcoming Encounters Date Type Department Care Team (Late Contact Info) Description 05/03/2025 10:30 AM EDT Office Visit [facility] [address] [place] [address] Loida Huggins NP [address] [place] [address] documented as of this encounter Visit Diagnoses Diagnosis Meralgia paresthetica, right lower limb Anxiety disorder, unspecified Restless legs syndrome Restless legs syndrome (RLS) Insomnia, unspecified Unspecified osteoarthritis, unspecified site documented in this encounter Care Teams Trimmer Press Clippings Relationship Specialty Start Date End Date Chandler Tee MD [address] [place] [address] PCP - General Family Medicine 02/24/24 Loida Huggins NP [address] [place] [address] Referring Physician Nurse Practitioner 03/02/23 documented as of this encounter
[2025-02-05 08:13] LABS: Bilirubin Urine NEGATIVE (NEGATIVE); Blood Urine NEGATIVE (NEGATIVE); Clarity Urine SL CLOUDY (CLEAR); Color Urine LT. YELLOW (YELLOW); Glucose Urine UA NEGATIVE (NEGATIVE); Ketones Urine NEGATIVE (NEGATIVE); Leukocyte Esterase Urine NEGATIVE (NEGATIVE); Nitrite Urine NEGATIVE (NEGATIVE); Protein Urine NEGATIVE (NEG/TRACE); Urobilinogen Urine 0.2 EU/dL (0.2-1.0)
[2025-02-05 08:14] LABS: Urine Microscopic Indicated NO
[2025-02-05 08:47] LABS: Alanine Aminotransferase 26 U/L (14-59); Albumin Globulin Ratio 1.1; Albumin Level 3.7 g/dL (3.4-5.0); Alkaline Phosphatase 110 U/L (46-116); Anion Gap 13.2; Aspartate Amino Transferase 15 U/L (15-37); BUN Creatinine Ratio 26.1; Bilirubin Total 0.2 mg/dL (0.2-1.0); Calcium 8.9 mg/dL (8.5-10.1); Carbon Dioxide 27.1 mmol/L (21.0-32.0); Chloride 108 mmol/L (98-107); Chol HDL Ratio 3.8; Cholesterol 191 mg/dL (<=200); Estimated GFR (African America >60 (>=60 mL/min/1.73m^2); Estimated GFR (Non-African Ame >60 (>=60 mL/min/1.73m^2); Globulin 3.3 g/dL; Glucose 108 mg/dL (74-106); HDL Cholesterol 50 mg/dL (40-60); LDL Cholesterol Calculated 121.2 mg/dL; Potassium 4.3 mmol/L (3.5-5.1); Sodium 144 mmol/L (136-145); Thyroid Stimulating Hormone 7.594 uIU/mL (0.358-3.740); Triglycerides 99 mg/dL (<=150); VLDL CHOLESTEROL 19.8 mg/dL
[2025-02-05 08:48] LABS: Basophils Percent Auto 0.4 % (0.2-2.0); Eosinophils Absolute Auto 0.2 10^3/uL (0.0-0.7); Eosinophils Percent Auto 2.4 % (0.9-7.0); Hematocrit 41.3 % (36.0-48.0); Hemoglobin 13.6 g/dL (12.0-16.0); Immature Granulocytes Abs Auto 0.02 10^3/uL (0.00-0.03); Immature Granulocytes Pct Auto 0.3 % (0.0-0.5); Lymphocytes Absolute Auto 2.9 10^3/uL (1.2-3.8); Lymphocytes Percent Auto 38.6 % (20.5-60.0); Mean Corpuscular HGB Conc 32.9 g/dL (29.9-35.2); Mean Corpuscular Hemoglobin 29.6 pg (26.7-34.0); Mean Corpuscular Volume 89.8 fL (81.0-99.0); Mean Platelet Volume 8.9 fL (9.5-13.5); Monocytes Absolute Auto 0.6 10^3/uL (0.3-0.8); Neutrophils Absolute Auto 3.8 10^3/uL (1.4-6.5); Neutrophils Percent Auto 50.3 % (43.0-75.0); Platelet Count 216 10^3/uL (150-450); Red Cell Distribution Width 13.6 % (11.0-15.0); White Blood Count 7.5 10^3/uL (4.0-11.0)
[2025-02-05 09:33] LABS: Free T4 0.79 ng/dL (0.76-1.46)
== END 2025-02-05 07:44 | disposition home or self-care (01) ==
LOC: LAB 07:46
PROVIDERS: PCP Nurse Practitioner; Visit Provider Nurse Practitioner
DX: G47.33 Obstructive sleep apnea (adult) (pediatric) (principal); J44.89 Other specified chronic obstructive pulmonary disease; K21.9 Gastro-esophageal reflux disease without esophagitis; R60.0 Localized edema; R73.03 Prediabetes; E66.01 Morbid (severe) obesity due to excess calories; Z72.0 Tobacco use; E03.9 Hypothyroidism, unspecified
CPT/HCPCS: 36415; 80053; 80061; 81003; 84439; 84443; 85025

== ENCOUNTER 2025-05-11 11:06 | Outpatient (OUT) | payer BC, SELFPAY ==
--- OUTSIDE RECORDS SUMMARY | 2025-05-11 11:13 | XMS_ITS | Clinical Summary ---
Author Organization [facility] Address [address] [place] [address] Phone Care Team Providers Care Job Site Superintendent Name Role Phone Loida Huggins APRN-STERILE PROCESSING MANAGER Primary Care Provider Allergies No known active [...] COVID-19 Vaccine (1 - 2023-2 5 season) 2025 Influenza Vaccine (#1) 2025 07/05/2016 HIB Vaccines Aged Out No longer eligi [...] patient's age to complete this topic Insurance [facility] Care Teams Job Site Superintendent Relationship Specialty Start Date End Date Loida Huggins, CHARGE ACCOUNT AUTHORIZER-STERILE PROCESSING MANAGER [address] [place] [address] PCP - General 08/16/16
--- OUTSIDE RECORDS SUMMARY | 2025-05-11 11:13 | XMS_ITS | Clinical Summary ---
Author Organization [facility] Address [address], [address] [place] [address] Care Team Providers Care Core Analyst Name Role Phone Unavailable Primary Care Provider Unavailabl e Allergies No known active allergies Medications No known medications Active Problems No known active problems Social History Tobacco Use Types Packs/Day Years Used Date Smoking Tobacco: Every Day Cigarettes 1 30 Alcohol Use Standard Drinks/Week Comments No 0 (1 standard drink = 0.6 oz pur e alcohol) Comments Unknown Sex and Gender Information Value Date Recorded Sex Assigned at Not on file Legal Sex Female 8:01 PM EST Gender Identity Not on file Sexual Orientation Not on file Last Filed Vital Signs Vital Sign Reading Time Taken Comments Blood Pressure 132/80 08/07/2015 9:28 AM EST Pulse 98 08/07/2015 9:28 AM EST Temperature - - Respiratory Rate 16 08/07/2015 9:28 AM EST Oxygen Saturation - - Inhaled Oxygen Concentration - - Weight - - Height - - Body Mass Index - - Plan of Treatment Not on file Insurance [facility] [place]
--- OUTSIDE RECORDS SUMMARY | 2025-05-11 11:13 | XMS_ITS | Clinical Summary ---
Author Organization [facility] Address [id number] [address] [place] [address] Care Team Providers Care Precision Layout Worker Name Role Phone Loida Huggins APRN-[facility] Primary Care Provider Allergies No known active [...] 04/16/2025 Medical Devices Not on file [place] [address] [place] [address] MEDICAID Care Teams Precision Layout Worker Relationship Specialty Start Date End Date Loida Huggins, MALATHI-AUTOMOTIVE EXHAUST EMISSIONS TECHNICIAN PCP - General Nurse Practitioner 11/30/16
--- OUTSIDE RECORDS SUMMARY | 2025-05-11 11:13 | XMS_ITS | Encounter Summary ---
Author Organization [facility] Address [address] [place] [address] Phone Care Team Providers Care Small Products I Assembler Name Role Phone Loida Huggins Primary Care Provider Encounter Details Date Type Department Care Team (Late st Contact Info) Description 01/25/2022 Orders Only [facility] [address] [place] [address] Conversion, Onbase Social History Tobacco Use Types [...] on filedocumented in this encounter Care Teams Small Products I Assembler Relationship Specialty Start Date End Date Loida Huggins APRN-CNP [address] [place] [address] PCP - General 08/16/16 documented as of this encounter
--- OUTSIDE RECORDS SUMMARY | 2025-05-11 11:13 | XMS_ITS | Clinical Summary ---
Author Organization [facility] Address [address] [place] [address] Care Team Providers Care Building Maintenance Supervisor Name Role Phone Loida Huggins NP Unavailable [phone] Chandler Tee MD Primary Care Provider [phone] Allergies No known active allergies Medications Fluticasone-Umeclid in-Vilant (Trelegy Ellipta) 100-62.5-25 MCG/ACT aerosol powderIndications:C hronic Obstructive Pulmonary Disease Inhale 1 puff Daily Active PARoxetine (Paxil) 40 MG tabletIndications:A nxiety disorder, unspecified Take 1 tablet (40 mg) by mouth Daily 90 tablet 5 Active levothyroxine (Synthroid, Levoxyl) 88 MCG tabletIndications:A cquired Hypothyroidism Take 1 tablet (88 mcg) by mouth in the morning. Take before meals. 90 tablet 5 Active furosemide (Lasix) 40 MG tabletIndications:P ulmonary hypertension, unspecified (HCC) Take 1 tablet (40 mg) by mouth Daily 90 tablet 5 Active amitriptyline (Elavil) 25 MG tabletIndications:I nsomnia, unspecified Take 1 tablet (25 mg) by mouth at bedtime 90 tablet 5 Active rOPINIRole (Requip) 0.5 MG tabletIndications:R estless legs syndrome Take 2 tablets (1 mg) by mouth at bedtime May take 1-2 pills at bedtime 180 tablet 5 Active Active Problems Problem Noted Date Diagnosed [...] of the risks of continued smoking: stroke, [place], all forms of cancer, lung disease, and [...] that supplies your machine and tubing/filters etc: [facility] Doctor that manages your DEANNA: PCP Gave her phone number for [facility] Sleep lab for pt to call them to see what to do about pap and motor on machine Leiomyoma of uterus 01/23/2009 GERD (gastroesophageal reflux disease) 9 Assessment & Plan (01/25/2025 6:23 AM EDT): [...] Plan (03/20/2024 5:02 PM EDT): Continue paxil Immunizations Immunization Administration Dates Next Due Influenza, [...] 03/20/2024 2:51 PM EDT Plan of Treatment Health Maintenance Due Date Last Done Comments CT Colonography 1968 FIT-DNA 1968 FIT 1968 FOBT 1970 Sigmoidoscopy 1968 Pap Smear 1989 HPV/Cotest 1998 Influenza Vaccine (#1) 2025 2, 08/16/2020, 06/14/2019, Additional history exists Mammogram 01/25/2026 01/25/2025 (Tamar ent Refused), 03/20/2024 (Patient Refused) Colonoscopy 10/15/2027 10/14/2022 Colorectal Cancer Screening 10/15/2027 Cervical Cancer Screening Discontinued Insurance [employer] Care Teams Building Maintenance Supervisor Relationship Specialty Start Date End Date Chandler Tee MD PCP - General Family Medicine 02/24/24 Loida Huggins NP Referring Physician Nurse Practitioner 03/02/23
--- OUTSIDE RECORDS SUMMARY | 2025-05-11 11:13 | XMS_ITS | Encounter Summary ---
Author Organization [facility] Address [address] [facility] [place] [address] Care Team Providers Care Laundromat Manager Name Role Phone Loida Huggins SEISMOGRAPH COMPUTER Unavailable [phone] Chandler Tee MD Primary Care Provider [phone] Reason for Visit * Reason Comments Med Refill Encounter Details Date Type Department Care Team (Late st Contact Info) Description 09/27/2024 Refill [facility] [address] [place] [address] Loida Huggins, SEISMOGRAPH COMPUTER [address] [place] [address] Restless legs syndrome; Bilateral primary osteoarthritis of [...] as of this encounter Plan of Treatment Not on file documented as of this encounter Visit Diagnoses Diagnosis Restless legs syndrome Restless legs syndrome (RLS) Bilateral primary osteoarthritis of knee Insomnia, unspecified documented in this encounter Care Teams Laundromat Manager Relationship Specialty Start Date End Date Chandler Tee MD PCP - General Family Medicine 02/24/24 Loida Huggins NP Referring Physician Nurse Practitioner 03/02/23 documented as of this encounter
--- OUTSIDE RECORDS SUMMARY | 2025-05-11 11:13 | XMS_ITS | Encounter Summary ---
Author Organization [facility] Address [address] [place] [address] Care Team Providers Care Paper Deliverer Name Role Phone Loida Huggins LEAD PRINCIPAL TECHNICAL ARCHITECT Unavailable [phone] Chandler Tee MD Primary Care Provider [phone] Reason for Visit * Reason Comments Med Refill Encounter Details Date Type Department Care Team (Late st Contact Info) Description 03/08/2024 Refill [facility] [address] [place] [address] Loida Huggins, LEAD PRINCIPAL TECHNICAL ARCHITECT [address] [place] [address] Meralgia paresthetica, right lower limb; Anxiety disorder, [...] site documented in this encounter Care Teams Paper Deliverer Relationship Specialty Start Date End Date Chandler Tee MD PCP - General Family Medicine 02/24/24 Loida Huggins NP Referring Physician Nurse Practitioner 03/02/23 documented as of this encounter
--- OUTSIDE RECORDS SUMMARY | 2025-05-11 11:13 | XMS_ITS | Encounter Summary ---
Author Organization [facility] Address [address] [facility] [place] [address] Care Team Providers Care Laboratory Technical Specialist Name Role Phone Loida Huggins SOLE DYER Unavailable [phone] Chandler Tee MD Primary Care Provider [phone] Reason for Visit * Reason Comments Med Refill Encounter Details Date Type Department Care Team (Late st Contact Info) Description 09/16/2024 Refill [facility] [address] [place] [address] Loida Huggins, SOLE DYER [address] [place] [address] Other specified hypothyroidism ; Restless legs syndrome; [...] unspecified documented in this encounter Care Teams Laboratory Technical Specialist Relationship Specialty Start Date End Date Chandler Tee MD PCP - General Family Medicine 02/24/24 Loida Huggins NP Referring Physician Nurse Practitioner 03/02/23 documented as of this encounter
--- OUTSIDE RECORDS SUMMARY | 2025-05-11 11:13 | XMS_ITS | Encounter Summary ---
Author Organization [facility] Address [address] [facility] [place] [address] Care Team Providers Care Manager Instrumentation Name Role Phone Loida Huggins NP Unavailable [phone] Chandler Tee MD Primary Care Provider [phone] Reason for Visit * Reason Comments Med Refill Encounter Details Date Type Department Care Team (Late st Contact Info) Description 02/28/2024 Refill [facility] [address] [place] [address] Loida Huggins NP [address] [place] [address] Meralgia paresthetica, right lower limb Social History [...] limb documented in this encounter Care Teams Manager Instrumentation Relationship Specialty Start Date End Date Chandler Tee MD PCP - General Family Medicine 02/24/24 Loida Huggins NP Referring Physician Nurse Practitioner 03/02/23 documented as of this encounter
[2025-05-11 12:14] LABS: Anion Gap 10.1; Blood Urea Nitrogen 21.0 mg/dL (7.0-18.0); Calcium 9.1 mg/dL (8.5-10.1); Carbon Dioxide 30.1 mmol/L (21.0-32.0); Chloride 102 mmol/L (98-107); Estimated GFR (African America >60 (>=60 mL/min/1.73m^2); Estimated GFR (Non-African Ame 50 (>=60 mL/min/1.73m^2); Glucose 126 mg/dL (74-106); NT Pro B Type Natriuretic Pept 23.0 pg/mL (<=900.0); Potassium 4.2 mmol/L (3.5-5.1); Sodium 138 mmol/L (136-145); Thyroid Stimulating Hormone 4.885 uIU/mL (0.358-3.740)
== END 2025-05-11 11:07 | disposition home or self-care (01) ==
LOC: LAB 11:10
PROVIDERS: PCP Nurse Practitioner; Visit Provider Nurse Practitioner
DX: R60.0 Localized edema (principal); E03.9 Hypothyroidism, unspecified; I51.89 Other ill-defined heart diseases
CPT/HCPCS: 36415; 80048; 83880; 84439; 84443

== ENCOUNTER 2025-05-14 11:10 | Outpatient (OUT) | payer BC, SELFPAY ==
--- NOTE | 2025-05-14 11:18 | XR_ITS ---
The [address] [address] Patient Name: VIN EDUARDO MRN: [id number] date: 1970 Sex: F Assigned Patient Location: [facility] Current Patient Location: [facility] Accession/Order Number: [id number] Exam Date: 05/14/2025 11:40 Report Date: 05/14/2025 11:59 At the request of: MARIAMA GARCIA NP Procedure: XR chest 2V PA AND LATERAL CHEST: CLINICAL HISTORY: Chronic cough. Asthma and COPD. COMPARISON: 04/15/2023 There is mild hyperinflation. There is no focal parenchymal consolidation, effusion or pneumothorax. The cardiac, hilar and mediastinal silhouettes are within normal limits. There is no vascular congestion. The visualized bony thorax is intact. There is mild endplate spurring and subtle dextroscoliotic curvature.. XR/XR chest 2V IMPRESSION: OBSTRUCTIVE LUNG DISEASE. NO ACUTE CARDIOPULMONARY ABNORMALITY. Impression dictated by: Serena Serna M.D. 05/14/2025 11:59 AM Dictation Location: [place] [address] Electronically authenticated by: [id number] Y Date: 05/14/2025 11:59
== END 2025-05-14 11:11 | disposition home or self-care (01) ==
LOC: RAD 11:12
PROVIDERS: PCP Nurse Practitioner; Visit Provider Nurse Practitioner
DX: I51.89 Other ill-defined heart diseases (principal); J44.89 Other specified chronic obstructive pulmonary disease; R60.0 Localized edema
CPT/HCPCS: 71046

== ENCOUNTER 2025-05-18 08:47 | Outpatient (OUT) | payer BC, SELFPAY ==
--- NOTE | 2025-05-18 09:00 | CA_ITS ---
Patient Name: VIN EDUARDO MR#: [id number] : 1970 Exam Date: 05/18/2025 Ordering Doctor: SEAMUS GARCIA CNP ECHOCARDIOGRAM REPORT PROCEDURE: CA ECHO DOPPLER COMPLETE INDICATIONS: Edema, obstructive sleep apnea COMPARISON: None. DESCRIPTION: COMPLETE ECHOCARDIOGRAM Real-time transthoracic echocardiography with 2D, M-mode, spectral and color flow Doppler performed. QUALITY: Technically difficult due to poor acoustics LEFT VENTRICLE: Normal chamber size. Thickened septal wall. LV EF: Normal left ventricular ejection fraction, (>55%). DIASTOLIC: Normal diastolic function. ATRIAL SEPTUM: LEFT ATRIUM: Normal chamber size. RIGHT ATRIUM: Normal chamber size. RIGHT VENTRICLE: Normal chamber size. Decreased right ventricular systolic function. TRICUSPID VALVE: Normal mobility and thickness. No stenosis with no regurgitation. MITRAL VALVE: Normal mobility and thickness. No evidence of mitral valve stenosis. There is no mitral annular calcification. Trivial mitral regurgitation. AORTIC VALVE: Normal trileaflet appearance. No visible sclerosis. Normal leaflet mobility. No evidence of aortic valve stenosis. No aortic regurgitation. AORTIC ROOT: Normal diameter and appearance. PULMONIC VALVE: Not well visualized. No stenosis. No regurgitation. PERICARDIUM: No evidence of pericardial effusion. IVC: Collapes with inspirations. IVC is normal in size. PLEURA: CONCLUSION: 1. Normal left ventricular ejection fraction, (>55%). 2. No significant valvular disease. Adult Echocardiography Procedure Report Left Ventricle LVEDD (3.7 - 5.6 cm): 3.92 cm LVESD (2.2 - 4.0 cm): 2.89 cm LVIVS thickness (0.6 - 1.2 cm): 1.40 cm LVPW thickness (0.5 - 1.0 cm): 1.06 cm e': 0.08 m/s E - e': 5.68 LVOT Max Gradient: 3.95 mm[Hg] LVOT Area (cm2): 0.99 m/s Peak Velocity (LVOT): 0.99 m/s Mean Velocity (LVOT): 0.68 m/s LVOT Diameter 2.12 cm Left Ventricular Ejection Fraction: Left Atrium LA Volume Index (2D A2C): 24.55 ml/m2 Left Atrium Systolic Dimension: 4.32 cm Mitral Valve MV E to A Ratio: 0.70 MV Max Gradient: MV Mean Gradient: Mitral Valve A-Wave Peak Velocity: 0.67 m/s Mitral Valve E-Wave Peak Velocity: 0.47 m/s Cardiovascular Orifice Area: Right Ventricle RV Internal Diastolic Dimension: Aorta AO Root Diam: 3.42 cm Ascending Ao Diam: Aortic Valve AoV Area (Peak Gabino): 2.46 cm2, 2.46 cm2 AoV Area (VTI): 2.86 cm2, 2.86 cm2 Deceleration [place]: Pressure Half-Time: Peak Velocity(Antegrade Flow): 1.43 m/s Peak Gradient(Antegrade Flow): 8.14 mm[Hg] Mean Velocity(Antegrade Flow): 0.89 m/s Mean Gradient(Antegrade Flow): 3.78 mm[Hg] Velocity Time Integral: 26.01 cm Tricuspid Valve Peak Velocity (Regurgitant Flow): Peak Velocity: Pulmonic Valve Mean Gradient: Mean Velocity: Peak Velocity: 0.98 m/s Peak Gradient: 3.86 mm[Hg] Right Atrium Right Atrium Systolic Pressure: 65.04 ml, 65.04 ml Dictated by: Robyn Calle MD on 05/18/2025 at 11:23 Approved by: Robyn Calle MD on 05/18/2025 at 11:29
== END 2025-05-18 08:48 | disposition home or self-care (01) ==
LOC: CARD 08:47
PROVIDERS: PCP Nurse Practitioner; Visit Provider Nurse Practitioner
DX: R60.0 Localized edema (principal); I51.89 Other ill-defined heart diseases; G47.33 Obstructive sleep apnea (adult) (pediatric); I27.20 Pulmonary hypertension, unspecified
CPT/HCPCS: 93306